=== PATIENT | male | born 1980 | race Two or more races ===

== ENCOUNTER 2016-05-23 16:23 | Emergency (ER) | payer OTHER ==
[~2016-05-23] VITALS: Ht 177.8 cm; Wt 120.2 kg
[2016-05-23 16:57] VITALS: BP 120/62
--- NOTE | 2016-05-23 17:07 | Emergency Room Report ---
History of Present Illness General Chief Complaint: Eye Problems Source: Patient Present Illness HPI 35-year-old male presents emergency department complaining of erythema, increased lacrimation and yellowish discharge out of the right eye x2 days. Patient was recently diagnosed with bacterial conjunctivitis of the left eye after upper respiratory infection. Patient states that eye is beginning to resolve however the right eye is now having similar symptoms in patient is almost out of antibiotic eyedrops. Denies eye pain, denies eye injury or trauma. he denies visual changes, loss of vision, or contact lens use. He does state that he is diabetic with well-controlled blood glucose. Denies CP, Palpitations, LOC, AMS, dizziness, Changes in Vision, Sensation, paresthesias, or a sudden severe headache. Pt. states he needs work note as work is worried he is contagious. Allergies: Coded Allergies: No Known Allergies (Unverified , 05/23/16) Patient History Past Medical History: see triage record Past Surgical History: none Pertinent Family History: none Immunizations: UTD Reviewed Nursing Documentation: PMH: Agreed Nursing Documentation-PMH Hx Diabetes: Yes Review of Systems All Other Systems: negative except mentioned in HPI Physical Exam Vital Signs Date Time Temp Pulse Resp B/P Pulse Ox O2 Delivery O2 Flow Rate FiO2 05/23/16 16:42 98.1 87 18 117/74 95 Room Air Sp02 EP Interpretation: reviewed, normal General Appearance: no apparent distress, alert, GCS 15, non-toxic Head: normocephalic, atraumatic Eyes: right eye other - erythema, and yellow purulent d/c noted in the right eye, visible crusting noted on the eyelashes, no lid swelling or lid inflammation., bilateral eye PERRL, bilateral eye normal inspection ENT: hearing grossly normal, normal pharynx, no angioedema, normal voice Neck: full range of motion, supple/symm/no masses Respiratory: chest non-tender, lungs clear, normal breath sounds, speaking full sentences Cardiovascular #1: regular rate, rhythm, no edema Rectal: deferred Genitourinary: normal inspection, no CVA tenderness Musculoskeletal: back normal, gait/station normal, normal range of motion, non- tender, no calf tenderness Neurologic: alert, oriented x3, responsive, motor strength/tone normal, sensory intact, speech normal Psychiatric: judgement/insight normal, memory normal, mood/affect normal, no suicidal/homicidal ideation Reflexes: 4+ bicep (R), 4+ bicep (L), 4+ tricep (R), 4+ tricep (L), 4+ knee (R) , 4+ knee (L) Skin: normal color, no rash, warm/dry, well hydrated Lymphatic: no adenopathy Medical Decision Making PA Attestation Dr. mclean is my supervising Physician whom patient management has been discussed with. Diagnostic Impression: Primary Impression: Bacterial conjunctivitis of right eye ER Course Pt. presents to the ED c/o : Right eye redness, discharge, and increased lacrimation x 2 days. recently treated for conjunctivitis out of the left. Ddx considered but are not limited to: corneal abrasion, acute glaucoma, globe rupture, FB, Corneal Ulcer, conjunctivitis. Iridis, orbital cellulitis,keratitis , sinusitis Vital signs: are WNL, pt. is afebrile H&PE are most consistent with: bacterial conjunctivitis ORDERS: none at this time. ED INTERVENTIONS: none at this time. DISCHARGE: At this time pt. is stable for d/c to home. Will provide printed patient care instructions, and any necessary prescriptions. Care plan and follow up instructions have been discussed with the patient prior to discharge. Last Vital Signs Date Time Temp Pulse Resp B/P Pulse Ox O2 Delivery O2 Flow Rate FiO2 05/23/16 16:57 98.0 76 18 120/62 95 Room Air Disposition: HOME, SELF-CARE Condition: Stable Scripts Ofloxacin (OCUFLOX) 5 Ml Drops 3 DROP OP QID for 5 Days, #5 ML Prov: Abimbola Vela 05/23/16 Departure Forms: Return to Work Return to Work Date: May 28, 2016 Work Restrictions: None Return to Full Activity: May 28, 2016 Patient Instructions: Bacterial Conjunctivitis Additional Instructions: Take medications as directed. Follow up with PCP in 3-5 days Return sooner to ED if new symptoms occur, or current symptoms become worse. Abimbola Vela May 23, 2016 17:07
[2016-05-23] MEDS ORDERED: OCUFLOX5 ML OP (17:08)
[2016-05-23 17:12] VITALS: BP 126/60
== END 2016-05-23 17:12 | disposition home or self-care (01) ==
LOC: EMR 17:00
DX: H10.9 Unspecified conjunctivitis (principal); B96.89 Other specified bacterial agents as the cause of diseases classified elsewhere; H57.9 Unspecified disorder of eye and adnexa
CPT/HCPCS: 99283